=== PATIENT | female | born 2000 | race Caucasian/White ===

== ENCOUNTER 2023-03-27 18:55 | Inpatient (IN) | payer SELFPAY ==
[2023-03-27 19:40] VITALS: PULSE 106; TEMP 36.5; O2SAT 100
[2023-03-27 19:42] VITALS: BP 141/86; PULSE 103
--- NOTE | 2023-03-27 19:47 | HP.PCM.OB_ITS ---
HPI - General General Date of Admission: 03/27/23 Date of Service: 03/27/23 Chief Complaint: induction of labor HPI Narrative ALBERTO OBRIEN, is a 22-year-old for male 1 para 0 who presents at 38-5/7 weeks with a EDC 04/05/2023 for induction labor due to poorly controlled gestational diabetes. She denies any vaginal bleeding or leaking of fluid. She denies any headache or visual changes. She denies any epigastric pain. Maternal Data Information Final YVONNE: 04/05/23 Gestational age: 38 5/7 PFSH PFSH Home Medications aspirin 81 mg capsule 81 mg PO DAILY hypertension in 03/27/23 [History Last Taken 03/27/23] vit no.95-ferrous fumarate 28 mg-folic acid 800 mcg tablet () 1 tab PO DAILY 03/27/23 [History Last Taken 03/27/23] ubidecarenone-omega 3-vit E .ROUTE supplement 03/27/23 [History Last Taken 03/02 03/23] Allergy/AdvReac Type Severity Reaction Status Date / Time No Known Allergies Allergy Verified 03/27/23 19:47 ROS Constitutional Constitutional: Denies fatigue, fever(s) or malaise Eyes Eyes: Denies change in vision ENT HEENT: Denies dizziness or headache(s) Cardiovascular Cardiovascular: Denies chest pain, dyspnea or lightheadedness Respiratory/Chest Respiratory/Chest: Denies cough or dyspnea Gastrointestinal Gastrointestinal: Denies change in bowel habits Genitourinary Genitourinary: Denies burning urination or genital lesions Integumentary Integumentary: Denies rash Neurologic Neurologic: Denies confusion, dizziness, headache(s), numbness or weakness Vital Signs Vital Signs Vital Signs: 03/27/23 19:40 03/27/23 19:40 03/27/23 19:42 Temperature Temperature Source Pulse Rate 106 H Blood Pressure 141/86 H BP Systolic 141 BP Diastolic 86 Pulse Ox 100 03/27/23 19:42 03/27/23 19:40 03/27/23 19:40 Temperature 97.7 F L Temperature Source Temporal Pulse Rate 103 H Blood Pressure BP Systolic BP Diastolic Pulse Ox Physical Exam Const alert and no apparent distress General Appearance: cooperative HEENT normocephalic Resp normal respiratory effort Cardio regular rate GI soft to palpation GI Narrative: gravid, nontender, appropriate for gestational age Extremity no calf tenderness General Extremity: edema Skin no wounds Rashes: No rashes noted Psych activity/motor behavior normal Labs Labs Labs: No Data to Display Assessment & Plan (1) 38 weeks gestation of : PLAN: Cervix is 2/60/-2, medium consistency and midposition. Response alternatives to Arias induction with Pitocin were discussed with patient, her questions were answered to her satisfaction she desired to proceed. Patient Arias catheter was placed over the cervix in the usual sterile fashion inflated to 30 cc. Placement over internal cervical os was confirmed and patient tolerated the procedure well. Her blood pressures were mildly elevated. We will send preeclampsia labs. Estimated weight is less than 4500 g clinically and pelvis clinically adequate to expect vaginal delivery. (2) Nulliparity: (3) Gestational diabetes requiring insulin:
[2023-03-27] MEDS: Lactated Ringers 1,000 ML 50 ML IV (20:00)
[2023-03-27] MEDS: 0.9% Normal Saline Single 100 ML IV.SOLN. INTRA-UTER (20:00)
[2023-03-27 20:03] VITALS: BMI 45.8
[2023-03-27 20:16] LABS: Absolute Lymphocyte Count 1.93 X10^3/uL (0.83-4.51); Absolute Neutrophil Count 6.9 X10^3/uL (2.0-7.7); Basophil# 0.02 X10^3/uL; Basophil% 0.2 % (0-1); Hematocrit 36.2 % (37-47); Hemoglobin 11.4 g/dL (12.0-15.0); Lymphocyte # 1.93 X10^3/ul (0.83-4.51); Lymphocyte % 19.8 % (19-41); Mean Corp Hgb Conc 31.5 g/dL (32-36); Mean Corpuscular Hgb 27.3 pg (27.0-32.0); Mean Corpuscular Volume 86.6 fL (81-99); Mean Platelet Vol. 10.5 fl (6.2-12.0); Monocyte# 0.73 X10^3/uL; Monocyte% 7.5 % (0-10); NRBC Flagged by Analyzer 0 % (0-5); Neutrophil # 6.93 X10^3/uL (2.7-7.7); Neutrophil % 70.9 % (47-70); Platelet Count 262 K/mm3 (150-450); RBC Distribution Width CV 14.1 % (11.6-14.6); RBC Distribution Width SD 44.4 fl (35.1-43.9); Red Blood Count 4.18 M/mm3 (4.2-5.4); White Blood Count 9.8 K/mm3 (4.4-11.0)
[2023-03-27 20:36] LABS: Bedside Glucose 98 mg/dL (74-106)
[2023-03-27 20:40] LABS: AST(SGOT) 14 U/L (15-37); Alanine Aminotransfer ALT/SGPT 18 U/L (13-56); Creatinine, Serum 0.62 mg/dL (0.55-1.02); EST Glomerular Filtration Rate 127 mL/min (>60); Est Glom Filt Rate - Afr Amer 154 mL/min (>60); Estimated Creatinine Clearance 117.74 ml/min; Uric Acid 5.6 mg/dL (2.6-6.0)
[2023-03-27 20:44] VITALS: PULSE 90; TEMP 36.6; O2SAT 99
[2023-03-27 20:44] LABS: LDH 169 U/L (84-246)
[2023-03-27 20:45] VITALS: BP 125/73; PULSE 92
[2023-03-27 21:02] LABS: Syphilis Antibodies Non-reactive
[2023-03-27 21:41] LABS: Bedside Glucose 95 mg/dL (74-106)
[2023-03-27 22:15] LABS: HIV - WCH Non-Reactive (Nonreactive)
[2023-03-27 22:41] LABS: Hepatitis C Antibody Non-Reactive (Nonreactive)
[2023-03-27 22:58] VITALS: BP 126/75; PULSE 109; TEMP 36.6
[2023-03-27 23:02] VITALS: PULSE 97; O2SAT 99
[2023-03-28] VITALS (44 sets, daily range): BP systolic 92–191; BP diastolic 53–134; PULSE 86–117; TEMP 35.9–36.9; O2SAT 81–100
[2023-03-28] MEDS: Oxytocin 15 Units/NS 250ml 15 UNITS/250 ML IV.SOLN 2 UNITS IV (01:35)
[2023-03-28 01:50] LABS: Bedside Glucose 89 mg/dL (74-106)
[2023-03-28 05:31] LABS: Bedside Glucose 94 mg/dL (74-106)
--- NOTE | 2023-03-28 07:30 | PCM.PN.BLA ---
Progress Note At bedside to check on pt. She is doing well and offers no complaints. Assessment & Plan Assessment/Plan (1) 38 weeks gestation of : PLAN: Cvx 3.5/70/-2, head well applied. AROM performed in usual fashion for moderate clear fluid. IUPC placed. Will place FSE at next check. (2) Nulliparity: (3) Gestational diabetes requiring insulin:
[2023-03-28] MEDS: Ondansetron 4 MG/2 ML Vial IV ×2 (08:00→16:06)
[2023-03-28] MEDS: 0.9% Saline Lock 10 ML Syringe IV ×2 (08:00→16:06)
[2023-03-28 09:53] LABS: Bedside Glucose 88 mg/dL (74-106)
[2023-03-28] MEDS: LACTATED RINGERS 500 ML 999 ML IV (11:23)
[2023-03-28] MEDS: fentaNYL-bupivacaine (epidural) 100 ML BAG EPIDURAL ×2 (12:15→16:54)
[2023-03-28] MEDS: Lactated Ringers 1,000 ML 200 ML IV ×2 (12:25→17:47)
[2023-03-28 14:04] LABS: Bedside Glucose 86 mg/dL (74-106)
[2023-03-28 15:07] LABS: Bedside Glucose 82 mg/dL (74-106)
[2023-03-28 15:49] LABS: Bedside Glucose 80 mg/dL (74-106)
[2023-03-28 17:35] LABS: Bedside Glucose 98 mg/dL (74-106)
--- NOTE | 2023-03-28 18:04 | PCM.PN.BLA ---
Progress Note At bedside to check on pt. Comfortable with epidural. Assessment & Plan Assessment/Plan (1) Gestational diabetes requiring insulin: PLAN: Complete and pushing x 2 hours. Descent noted and good maternal effort. Cont current management. (2) Nulliparity: (3) 38 weeks gestation of :
[2023-03-28] MEDS: Oxytocin 10 UNITS/ML Vial IM (21:01)
[2023-03-28] MEDS: Oxytocin 15 Units/NS 250ml 15 UNITS/250 ML IV.SOLN 83 UNITS IV (21:03)
[2023-03-28] MEDS: Methylergonovine 0.2 MG/ML Ampul IM (21:05)
--- NOTE | 2023-03-28 21:27 | PCM.OPRPT ---
Problems Associated Problem List Diagnoses (1) Gestational diabetes requiring insulin: (2) Nulliparity: (3) 38 weeks gestation of : (4) Vacuum-assisted vaginal delivery: Report of Operation Date of Procedure: 03/28/23 Pre-Operative Diagnosis: 38 week gestation, single IUP, obesity affecting , uncontrolled A2GDM on insulin, elevated blood pressure reading without diagnosis of hypertension Post-Operative Diagnosis: As above Surgery/Procedure Performed:: VAVD Second degree perineal repair Description of Surgical Findings:: VMI in OA position. Normal appearing placenta with 3 VC. Loose nuchal cord x 1. True knot in the umbilical cord noted. Surgeon: Farida Montiel Type of Anesthesia: Epidural Special Medications: None Specimen's removed: Placenta Drains: None Estimated Blood Loss (mL): 400 Fluids Replaced: N/A Description of Procedure: The patient was complete and pushing for 4 hours. Discussed risks, benefits, alternatives to a vacuum-assisted vaginal delivery and the patient initially declined and requested to continue pushing. After pushing for an additional ~30 minutes, again recommended a vacuum-assisted vaginal delivery. Discussed risks, benefits, alternatives to a vacuum-assisted vaginal delivery. The patient provided consent and desired to proceed at this time. Patient was comfortable with an epidural. Infant was noted to be in occiput anterior position. The bladder was drained with a catheter. Cvx 10/100 and at +2 station. The vacuum was placed in the correct placement in front of the posterior fontanelle and this was confirmed digitally. With the patient's next contraction, the vacuum was inflated and a gentle downward pressure was used to bring the baby's head lower. The contraction ended, and the vacuum was released. With the patient's next contraction, the vacuum was reapplied and the baby's head was delivered to a +3 station. The vacuum was then released. With a third contraction the vacuum was again reapplied and the baby's head was delivered to a +4 station. The vacuum was then removed after a total of 3 pulls with no pop offs. The baby's head was then delivered atraumatically in occiput anterior position. A loose nuchal cord x1 was noted and reduced. The baby's anterior shoulder was delivered with gentle downward traction, followed by the posterior shoulder and remainder of the body was delivered easily. A vigorous viable male was delivered without any excessive force or delay. The infant was placed on maternal abdomen. The cord was clamped and cut after a slight delay by the father of the baby. A true knot was noted in the cord. Cord gases were obtained and sent. The placenta delivered spontaneously and noted to be normal-appearing and intact with a three-vessel cord. The uterus was explored x1. The uterus was boggy after IM Pitocin and IV Pitocin. IM Methergine x1 was given. Uterine massage was applied. The uterus then firmed up and bleeding was hemostatic. A second-degree perineal laceration was noted and repaired with 3-0 Vicryl in usual fashion. The fundus was then again noted to be firm and the bleeding hemostatic. A rectal exam was performed and normal. Sponge and sharp counts were correct. A vaginal sweep was performed. Grafts/Implants Used: None Complications None Admit VTE Documentation VTE Present on Admission: No
[2023-03-28 22:24] LABS: Bedside Glucose 89 mg/dL (74-106)
[2023-03-28 22:24] LABS: Bedside Glucose 96 mg/dL (74-106)
[2023-03-28 23:17] LABS: Bedside Glucose 98 mg/dL (74-106)
[2023-03-28] MEDS: Acetaminophen 500 MG Tablet 1000 MG PO (23:47)
[2023-03-29 03:08] VITALS: BP 125/65; PULSE 109; RESP 16; TEMP 37.1; O2SAT 98
[2023-03-29 03:09] VITALS: BP 121/65; PULSE 108
[2023-03-29] MEDS: Acetaminophen 500 MG Tablet 1000 MG PO (06:40)
[2023-03-29 08:00] VITALS: BP 129/72; PULSE 116; RESP 12; TEMP 36.6; O2SAT 99
[2023-03-29] MEDS: Benzocaine/Lanolin/Aloe Vera 1 SPRAY EACH TOPICAL (08:11)
--- NOTE | 2023-03-29 08:29 | PCM.PN.OB ---
Subjective Subjective Patient seen at bedside. Feeling good. Denies any pain. Ambulating and voiding without difficulty. Lochia decreasing. with support. Objective Data Objective Data Vital Signs: Vital Signs Temp Pulse Resp BP Pulse Ox O2 Del Method 97.8 F 116 H 12 129/72 H 99 Room Air 03/29/23 08:00 03/29/23 08:00 03/29/23 08:00 03/29/23 08:00 03/29/23 08:00 03/29/23 08:00 Oxygen Delivery Method Room Air Weight: 259 lb Body Mass Index (BMI) 45.8 Intake & Output: Intake and Output for Last 24 Hours 03/27/23 03/28/23 03/29/23 23:59 23:59 23:59 Intake Total 3220.99 / 3220.99 250 / 250 Output Total 600 / 600 Balance 2620.99 / 2620.99 250 / 250 Lab / Micro Data 03/27/23 20:00 03/27/23 20:00 Labs: Laboratory Results - last 24 hr 03/28/23 09:24: POC Glucose 88 03/28/23 13:23: POC Glucose 86 03/28/23 14:39: POC Glucose 82 03/28/23 15:29: POC Glucose 80 03/28/23 17:17: POC Glucose 98 03/28/23 18:34: POC Glucose 96 03/28/23 19:59: POC Glucose 89 03/28/23 22:59: POC Glucose 98 ROS Eyes Eyes: Denies blurry vision, change in vision or spots in vision ENT HEENT: Denies dizziness or headache(s) Cardiovascular Cardiovascular: Denies abdominal pain, chest pain or dyspnea Respiratory/Chest Respiratory/Chest: Denies cough, dyspnea, shortness of breath at rest or shortness of breath with exertion Gastrointestinal Gastrointestinal: Denies abdominal pain, diarrhea or vomiting Genitourinary Genitourinary: Denies change in urinary stream, difficulty urinating or dysuria Musculoskeletal Musculoskeletal: Reports none Integumentary Integumentary: Denies rash Neurologic Neurologic: Denies dizziness, headache(s), memory loss or weakness Physical Exam Const alert and no apparent distress General Appearance: cooperative and comfortable Exam Limitations: no limitations HEENT normocephalic Eyes General Eye: normal appearance of both eyes Neck full ROM General: normal visual inspection Chest Chest: symmetrical chest wall rise Resp normal respiratory effort and normal air movement Effort and Inspection: symmetric chest movement Auscultation: clear to auscultation bilaterally Cardio regular rate and regular rhythm GI normal to inspection, nondistended, normoactive bowel sounds Back/Spine normal ROM Extremity full ROM and no calf tenderness General Extremity: normal exam except as noted Skin no rashes or lesions noted Neuro CN's II-XII intact bilaterally Psych mental status grossly normal Assessment & Plan (1) Vacuum-assisted vaginal delivery: (2) Gestational diabetes requiring insulin: (3) Care and examination of lactating mother: PLAN: Plan PPD 1 Vacuum assist delivery Fasting blood sugar normal support Pain control Anticipate discharge home tomorrow
[2023-03-29 08:51] LABS: Bedside Glucose 86 mg/dL (74-106)
[2023-03-29 12:00] VITALS: BP 120/62; PULSE 96; RESP 16; TEMP 36.4; O2SAT 98
[2023-03-29 16:40] VITALS: BP 126/71; PULSE 101; RESP 16; TEMP 36.4; O2SAT 98
[2023-03-29 20:00] VITALS: BP 110/70; PULSE 96; RESP 16; TEMP 37.2; O2SAT 97
[2023-03-30 02:18] VITALS: BP 105/61; PULSE 98; RESP 16; TEMP 36.7; O2SAT 96
[2023-03-30 07:46] VITALS: BP 116/62; PULSE 91; RESP 16; TEMP 36.4; O2SAT 96
--- NOTE | 2023-03-30 10:01 | PCM.PN.OB ---
Subjective Subjective Patient seen at bedside. Ambulating and voiding without difficulty. Denies headache, dizziness, CP, or SOB. Lochia decreasing. with minimal support. Desires discharge home today. Objective Data Objective Data Vital Signs: Vital Signs Temp Pulse Resp BP Pulse Ox O2 Del Method 97.5 F L 91 16 116/62 96 Room Air 03/30/23 07:46 03/30/23 07:46 03/30/23 07:46 03/30/23 07:46 03/30/23 07:46 03/30/23 07:46 Oxygen Delivery Method Room Air Weight: 259 lb Body Mass Index (BMI) 45.8 Intake & Output: Intake and Output for Last 24 Hours 03/28/23 03/29/23 03/30/23 23:59 23:59 23:59 Intake Total 3220.99 / 3220.99 250 / 250 Output Total 600 / 600 Balance 2620.99 / 2620.99 250 / 250 Lab / Micro Data 03/27/23 20:00 03/27/23 20:00 ROS Eyes Eyes: Denies blurry vision, change in vision or spots in vision ENT HEENT: Denies dizziness or headache(s) Cardiovascular Cardiovascular: Denies abdominal pain, chest pain or dyspnea Respiratory/Chest Respiratory/Chest: Denies cough, dyspnea, shortness of breath at rest or shortness of breath with exertion Gastrointestinal Gastrointestinal: Denies abdominal pain, diarrhea or vomiting Genitourinary Genitourinary: Denies change in urinary stream, difficulty urinating or dysuria Musculoskeletal Musculoskeletal: Reports none Integumentary Integumentary: Denies rash Neurologic Neurologic: Denies dizziness, headache(s), memory loss or weakness Physical Exam Const alert and no apparent distress General Appearance: cooperative and comfortable Exam Limitations: no limitations HEENT normocephalic Eyes General Eye: normal appearance of both eyes Neck full ROM General: normal visual inspection Chest Chest: symmetrical chest wall rise Resp normal respiratory effort and normal air movement Effort and Inspection: symmetric chest movement Auscultation: clear to auscultation bilaterally Cardio regular rate and regular rhythm GI normal to inspection, nondistended, normoactive bowel sounds Back/Spine normal ROM Extremity full ROM and no calf tenderness General Extremity: normal exam except as noted Skin no rashes or lesions noted Neuro CN's II-XII intact bilaterally Psych mental status grossly normal Assessment & Plan (1) Care and examination of lactating mother: (2) Vacuum-assisted vaginal delivery: PLAN: Plan PPD 2 VAVD Routine care support Pain controlled D/C home with follow up in office
--- NOTE | 2023-03-30 10:03 | DCINST_ITS ---
Discharge Instructions Diet Discharge Diet: No restrictions Activity May resume sexual activity in: 6-8 weeks Weight Bearing Status: Weight bearing as tolerated Dressing / Incision Call your doctor if you observe: Fever of 101 or Higher, Inability to urinate, Using more than 1 pad per hour, Shortness of breath, Chest pain, Calf discomfort and Uncontrolled pain Follow Up Care Please Follow Up With: Lee Ann Hunter CNM When: 2 weeks virtual visit/ 6 weeks in office Test Results: Test results from this visit will be discussed in further detail at your follow- up appointment, if applicable. Discharge Plan Admission Admit Date/Time: 03/27/23 18:55 Primary Reason for Your Visit: Labor and Delivery Attending Provider: Farida Montiel Primary Care Provider: Care Physician,No Primary Discharge Orders/Prescriptions Prescriptions: Continued PNV cmb#95-ferrous fumarate-FA [] 28 mg iron- 800 mcg tablet 1 tab PO DAILY ubidecarenone-omega 3-vit E [Co X-84-Nudhwcn E-Fish Oil] 1 cap PO DAILY Discontinued aspirin 81 mg capsule 81 mg PO DAILY Novolin N FlexPen 100 unit/mL (3 mL) insulin pen 12 unit subcut QHS Referrals / Follow Up: Lee Ann Hunter CNM [Med Staff - Adv Practice Prof] - Care Physician,No Primary [Primary Care Provider] - Disposition Disposition (needs filled in before D/C Order can be placed): Home, Self Care
== END 2023-03-30 10:45 | disposition home or self-care (01) | DRG 807 ==
PROVIDERS: Obstetrics & Gynecology; Admitting Provider Obstetrics & Gynecology; Visit Provider Obstetrics & Gynecology
DX: O75.81 Maternal exhaustion complicating labor and delivery (principal); Z37.0 Single live birth; E66.8 Other obesity; O24.424 Gestational diabetes mellitus in childbirth, insulin controlled; O69.81X0 Labor and delivery complicated by cord around neck, without compression, not applicable or unspecified; O70.1 Second degree perineal laceration during delivery; Z79.82 Long term (current) use of aspirin; Z3A.38 38 weeks gestation of pregnancy; O99.214 Obesity complicating childbirth; O69.2XX0 Labor and delivery complicated by other cord entanglement, with compression, not applicable or unspecified; R03.0 Elevated blood-pressure reading, without diagnosis of hypertension
CPT/HCPCS: 59025; 59050; 82247; 82565; 82962; 83615; 84450; 84460; 84550; 85025; 86703; 86780; 86803; 86850; 86900; 86901; 99221; J7120; A4216; G0378; J2405